=== PATIENT | female | born 1960 | race Caucasian/White ===

== ENCOUNTER 2024-11-09 13:42 | Outpatient (CLI) | payer OTHER, SELFPAY ==
--- NOTE | ~2024-11-09 | MM_ITS ---
EXAMINATION: MM screening robin BI w karolina HISTORY: Screening TECHNIQUE: Craniocaudal and mediolateral oblique 3-D tomosynthesis images were obtained and synthetic 2-D images were generated. CAD analysis was submitted and interpreted. COMPARISON: No prior mammogram is available for comparison at this institution. BREAST PARENCHYMAL COMPOSITION: Not dense: There are scattered areas of fibroglandular density. FINDINGS: There is no evidence of suspicious mass, calcification, or architectural distortion to sugg est malignancy in either breast. There has been no suspicious interval change. IMPRESSION: 1. No mammographic evidence of malignancy. 2. Recommend routine screening mammography in one year. BI-RADS Category 1: Negative Reviewed, dictated and finalized at location A.
== END 2024-11-09 13:43 | disposition home or self-care (01) ==
PROVIDERS: PCP Family Medicine; Visit Provider Family Medicine
DX: Z12.31 Encounter for screening mammogram for malignant neoplasm of breast (principal); Z78.0 Asymptomatic menopausal state
CPT/HCPCS: 77063; 77067

== ENCOUNTER 2024-12-01 09:23 | Outpatient (CLI) | payer OTHER, SELFPAY ==
--- NOTE | ~2024-12-01 | DEXA_ITS ---
Bone Density Report Name: JUANJO ACUÑA Age: 64 Sex: Female Ethnicity: White Date of : 1960 Indication: postmenopausal; screening for osteoporosis; Referring Provider: [facility]STA, [facility] Study: Bone densitometry was performed. Exam Date: December 01, 2024 Accession number: [id number] Bone Density: Region BMD T-score Z-score Classification AP Spine(L1-L4) 0.764 -2.6 -0.8 Osteoporosis Femoral Neck (Left) 0.476 -3.4 -1.9 Osteoporosis Total Hip (Left) 0.575 -3.0 -1.8 Osteoporosis Femoral Neck (Right) 0.468 -3.4 -1.9 Osteoporosis Total Hip (Right) 0.617 -2.7 -1.4 Osteoporosis Total Hip Mean 0.596 -2.9 -1.6 Osteoporosis World Health Organization criteria for BMD impression classify patients as: Normal (T-score at or above -1.0), Osteopenia (T-score between -1.0 and -2.5), or Osteoporosis (T-score at or below -2.5). 10-year Fracture Risk: FRAX not reported because: Some T-score for Spine Total or Hip Total or Femoral Neck at or below -2.5 Clinical Information Provided by Patient: Has used the following medications: Vitamin D Patient maximum height was 62.5 Menopause Age: 54 Drinks caffeinated beverages Onset of menses at age 16 Number of children 1 Impression: The patient has osteoporosis, based on the Left Femoral Neck T-score. Discussion: INCREASED RISK OF FRACTURE. BONE DENSITY IS UNDESIRABLY LOW AT ONE OR MORE SKELETAL SITES, CONSISTENT WITH POSTMENOPAUSAL OSTEOPOROSIS. This patient's lowest T-score meets the World Health Organization's (WHO) criteria for osteoporosis at one or more sites (T-score -2.5 or below). In untreated patients, the risk of osteoporotic fracture increases approximately two-fold for each 1.0 SD decrease in T-score. Low bone density is not the only risk factor for fracture; also consider factors such as patient's age, frailty or poor health, risk of falling, risk of injury, previous osteoporotic fracture, family history of osteoporosis, cigarette smoking, low body weight, etc. Not everyone with low bone mineral density has osteoporosis; osteomalacia and other metabolic bone disorders should also be considered. Patients who have osteoporosis should be evaluated for specific diseases and conditions (secondary causes) that may cause or contribute to bone loss. The [place] [employer] (AACE) and National Osteoporosis Foundation (NOF) recommend pharmacologic intervention for all postmenopausal women whose T-score is in this range. The patient should follow a healthful lifestyle (good nutrition with adequate calcium and vitamin D, and appropriate weight-bearing exercise). Follow-Up: Consider a repeat BMD and Vertebral Fracture Assessment (VFA) exam in 2 years or sooner if medically necessary, to reassess this patient's status. Reported by: GABBIE on 12/01/2024 9:42:00 AM. Reviewed, dictated and finalized at location A.
== END 2024-12-01 09:24 | disposition home or self-care (01) ==
LOC: MICIMG 09:25
PROVIDERS: PCP Family Medicine; Visit Provider Family Medicine
DX: Z78.0 Asymptomatic menopausal state (principal)
CPT/HCPCS: 77080